=== PATIENT | female | born 1990 | race Caucasian/White ===

== ENCOUNTER 2020-02-16 05:42 | Outpatient (CLI) | payer MEDICAID ==
[~2020-02-16] VITALS: Ht 160 cm; Wt 114.5 kg
[2020-02-16] MEDS ORDERED: FAMO20TA3 PO (15:24)
[2020-02-16] MEDS ORDERED: LEVO88TA54 PO (15:24)
[2020-02-16] MEDS ORDERED: LABE100T6 PO (15:24)
[2020-02-16] MEDS ORDERED: PNV1TABL9 PO (15:24)
[2020-02-16] MEDS ORDERED: DOCU-143 PO (15:24)
[2020-02-16] MEDS ORDERED: CETI10TA17 PO (15:24)
== END 2020-02-16 15:28 | disposition home or self-care (01) ==
LOC: PREOP 05:42
PROVIDERS: ATTEND Obstetrics & Gynecology
DX: Z01.818 Encounter for other preprocedural examination (principal)

== ENCOUNTER 2020-03-11 19:07 | Emergency (ER) | payer MEDICAID ==
[~2020-03-11] VITALS: Ht 160 cm; Wt 104.9 kg
[~2020-03-11 19:07] MED LIST: ACET-93 PO; CETI10TA17 PO; DCS100C PO; DOCU-143 PO; FAMO20TA3 PO; IBUP-1780 PO; LABE100T6 PO; LEVO88TA54 PO; OXYC5TAB96 PO; PNV1TABL9 PO
[2020-03-11 19:17] VITALS: BP 114/60
--- NOTE | 2020-03-11 19:43 | ED General ---
General Chief Complaint: Post OP Complications/Pain Stated Complaint: POST /BLEEDING Nursing Triage Note: PT AMBULATE TO ROOM FS01 WITH C/O POST OP BLEEDING. PT REPORTS HAVING A C SECTION X3 WEEKS AGO. PT STATES THAT SHE FELT SOMETHING WET AND WHEN SHE TOUCHED HER LOWER ABD HER HAND HAD BLOOD ON IT. PT REPORTS WALKING MORE TODAY THAT PREVIOUSLY. Nursing Sepsis Screen: No Definite Risk Source of Information: Patient History of Present Illness Date Seen by Provider: Mar 11, 2020 Time Seen by Provider: 19:09 Initial Comments 29-year-old female presenting with bleeding from section incision. She states that she had surgery about 3 weeks ago. She has no hematomas underneath the incision. She was doing well and had been cleared to be a little more active with her last visit this week. Today she was just walking and felt something wet on her lower abdomen that when she touched that it was blood. She had a large amount of blood and then felt like she couldn't get it to stop bleeding at home. She was worried that the incision was open again or bleeding that could not stop so she he came in to be seen. She denies any fever or chills. She has no significant amount of vaginal bleeding. Allergies and Home Medications Allergies Coded Allergies: adhesive (Verified Allergy, Unknown, Rash, 02/16/20) latex (Verified Allergy, Unknown, Rash, 02/16/20) Home Medications Acetaminophen 500 Mg Tablet, 1,000 MG PO Q6HR Prescribed by: FEDERICO MORAN on 02/24/20 1251 Cetirizine HCl 10 Mg Tablet, 10 MG PO DAILY, (Reported) Docusate Sodium 100 Mg Capsule, 100 MG PO BID Prescribed by: FEDERICO MORAN on 02/24/20 1251 Famotidine 20 Mg Tablet, 40 MG PO DAILY, (Reported) take 2 (20mg) tabs Ibuprofen 800 Mg Tablet, 800 MG PO Q8H Prescribed by: FEDERICO MORAN on 02/24/20 1251 Labetalol HCl 100 Mg Tablet, 100 MG PO TID, (Reported) Levothyroxine Sodium 88 Mcg Tablet, 88 MCG PO DAILY, (Reported) Oxycodone HCl 5 Mg Tablet, 5 MG PO Q4HR PRN for To achieve TAG Prescribed by: FEDERICO MORAN on 02/24/20 1251 Pnv Cmb#21/Iron/Folic Acid 1 Each Tablet, 1 EACH PO DAILY, (Reported) Patient Home Medication List Home Medication List Reviewed: Yes Review of Systems Review of Systems Constitutional: No chills, No fever EENTM: no symptoms reported Respiratory: no symptoms reported Cardiovascular: no symptoms reported Gastrointestinal: no symptoms reported Genitourinary: see HPI Musculoskeletal: no symptoms reported Skin: see HPI Psychiatric/Neurological: No Symptoms Reported Past Gyjdjsb-Mnbilc-Drnjri Hx Past Med/Social Hx: Reviewed Nursing Past Med/Soc Hx Patient Social History Recent Foreign Travel: No Contact w/Someone Who Travel: No Recent Infectious Disease Expo: No Recent Hopitalizations: No Immunizations Up To Date PED Vaccines UTD: Yes Seasonal Allergies Seasonal Allergies: Yes Past Medical History Surgeries: Yes (c/s x2) Respiratory: No Currently Using CPAP: No Currently Using BIPAP: No Cardiac: Yes Neurological: No Genitourinary: No Gastrointestinal: Yes (anal fissure) Gastroesophageal Reflux, Chronic Constipation Musculoskeletal: No Endocrine: Yes HEENT: No Cancer: No Psychosocial: Yes Anxiety, Bipolar, Depression Integumentary: Yes Pruritis Blood Disorders: No Family Medical History Diabetes mellitus 19 MOTHER Hypertension 19 FATHER Respiratory disorder 19 FATHER Physical Exam Vital Signs Vital Signs - First Documented 03/11/20 19:17 Temp 36.6 Pulse 65 Resp 16 B/P (MAP) 114/60 (78) O2 Delivery Room Air Capillary Refill : Less Than 3 Seconds Height, Weight, BMI Height: '" Weight: lbs. oz. kg; 40.00 BMI Method: General Appearance: WD/WN, Anxious, Obese Respiratory: Chest Non Tender, Lungs Clear, Normal Breath Sounds, No Accessory Muscle Use, No Respiratory Distress Cardiovascular: Regular Rate, Rhythm, Normal Peripheral Pulses Gastrointestinal: Normal Bowel Sounds, No Pulsatile Mass, Non Tender, Soft Skin: Warm/Dry, Ecchymosis (bruising around her incision especially on the left side. There is a blood soaked pad and blood on her clothes. There is no active bleeding coming from anywhere along her incision and there is no open areas along her incision for dehiscence) Progress/Results/Core Measures Suspected Sepsis Recent Fever Within 48 Hours: No Infection Criteria Present: None New/Unexplained Altered Menta: No Sepsis Screen: No Definite Risk SIRS Temperature: Pulse: 65 Respiratory Rate: 16 Blood Pressure 114 /60 Mean: 78 Results/Orders Vital Signs/I&O 03/11/20 19:17 Temp 36.6 Pulse 65 Resp 16 B/P (MAP) 114/60 (78) O2 Delivery Room Air Capillary Refill : Less Than 3 Seconds Blood Pressure Mean: 78 Progress Note : Progress Note Reassured patient that there was no obvious dehiscence and no continued active bleeding currently. Her vital signs were all stable. Discussed with Dr. Moran and he was in agreement that this all sounded to be from a hematoma. Reassured patient and will have her keep a dry dressing over the incision as needed. Follow-up through the clinic for continued concerns. Departure Impression Primary Impression: Hematoma of surgical wound following section Disposition: HOME, SELF-CARE Condition: Stable Departure-Patient Inst. Decision time for Depature: 19:42 Referrals: FEDERICO MORAN AMANDA S APRN (PCP) Primary Care Physician Patient Instructions: ( Delivery) (DC) Add. Discharge Instructions: Keep a clean dry pad or dressing over the incision. Follow up with Dr. Moran over the phone or in clinic for continued concerns. Images Torso/Trunk 1 - Other-See Progress Note (healing C section incision without any active bleeding or area of dehiscence. ) 2 - Ecchymosis (area of healing bruising and ecchymosis) NORA RECINOS MD Mar 11, 2020 19:43
== END 2020-03-11 19:46 | disposition home or self-care (01) ==
LOC: EDUNIT# 19:07 → ER FS 19:09
DX: O90.2 Hematoma of obstetric wound (principal); O99.63 Diseases of the digestive system complicating the puerperium; K21.9 Gastro-esophageal reflux disease without esophagitis; Z88.8 Allergy status to other drugs, medicaments and biological substances; Z91.040 Latex allergy status
CPT/HCPCS: 99281